=== PATIENT | male | born 2000 | race American Indian/Alaskan Native ===

== ENCOUNTER 2022-04-27 18:52 | Observation (INO) | payer MEDICAID ==
[2022-04-27] MEDS ORDERED: Acetaminophen 325 MG Tab PO PRN (19:56)
[2022-04-27] MEDS ORDERED: HYDROmorphone 0.5 MG/0.5 ML Syringe IVPUSH PRN (19:56)
[2022-04-27] MEDS ORDERED: Sodium Chloride 0.9% 10 ML Syringe FLUSH PRN (19:56)
[2022-04-27] MEDS ORDERED: Melatonin 3 MG Tab PO PRN (19:56)
[2022-04-27] MEDS ORDERED: Ondansetron 4 MG/2 ML SDV IV PRN (19:56)
[2022-04-27] MEDS ORDERED: Ondansetron 4 MG Tab.DIS PO PRN (19:56)
[2022-04-27] MEDS ORDERED: Piperacillin/Tazobactam 3.375 GM in Sodium Chloride 0.9% 50 ML IV SCH (20:00)
[2022-04-27 20:30] LABS: ESTIMATED GFR 108 mL/min (>60)
[2022-04-27] MEDS: Acetaminophen/HYDROcodone 325-5 MG Tab PO PRN (20:56)
[2022-04-27 21:23] LABS: CORONAVIRUS COVID-19 NAA NEGATIVE (NEGATIVE)
[2022-04-27] MEDS: Lactated Ringers 1,000 ML IV SCH (21:24)
[2022-04-27] MEDS ORDERED: Sodium Chloride 0.9% 50 ML ONE (21:39)
[2022-04-27] MEDS: Pantoprazole 40 MG Tab.CR PO SCH (21:52)
[2022-04-27] MEDS: Piperacillin/Tazobactam 3.375 GM in Sodium Chloride 0.9% 50 ML IV SCH (21:54)
[2022-04-28] MEDS: Acetaminophen/HYDROcodone 325-5 MG Tab PO PRN ×3 (03:32→20:39)
[2022-04-28] MEDS: Piperacillin/Tazobactam 3.375 GM in Sodium Chloride 0.9% 50 ML IV SCH ×2 (03:33→09:31)
[2022-04-28 04:54] LABS: ESTIMATED GFR 108 mL/min (>60)
[2022-04-28] MEDS: Lactated Ringers 1,000 ML IV SCH ×3 (06:06→22:11)
[2022-04-28] MEDS ORDERED: Enoxaparin 40 MG/0.4 ML Syringe SUBCUT ONE (09:00)
[2022-04-28] MEDS: Pantoprazole 40 MG Tab.CR PO SCH (09:31)
[2022-04-28] MEDS: Piperacillin/Tazobactam/Dext 3.375 GM in Premix Bag 1 BAG IV SCH ×2 (16:46→22:37)
[2022-04-29] MEDS: Acetaminophen/HYDROcodone 325-5 MG Tab PO PRN ×2 (01:26→06:01)
[2022-04-29] MEDS: Piperacillin/Tazobactam/Dext 3.375 GM in Premix Bag 1 BAG IV SCH ×3 (03:28→15:52)
[2022-04-29 06:51] LABS: ESTIMATED GFR 122 mL/min (>60)
[2022-04-29] MEDS: Lactated Ringers 1,000 ML IV SCH (07:02)
[2022-04-29] MEDS ORDERED: oxyCODONE 5 MG Tab PO PRN (07:12)
[2022-04-29] MEDS: Dextrose 5%-Lactated Ringers 1,000 ML IV SCH ×2 (07:20→15:52)
[2022-04-29] MEDS: Pantoprazole 40 MG Tab.CR PO SCH (07:20)
== END 2022-04-29 16:15 ==
LOC: INTOOBSV 18:53 → JP.MS 18:53
PROVIDERS: ADMIT Student in an Organized Health Care Education/Training Program; ATTEND Student in an Organized Health Care Education/Training Program
DX: K81.0 Acute cholecystitis (principal); K21.9 Gastro-esophageal reflux disease without esophagitis; Z20.822 Contact with and (suspected) exposure to COVID-19
CPT/HCPCS: 0241U; 36415; 74181; 74181-26; 76705; 80053; 82248; 83690; 83735; 84100; 85025; 85027; 96361; 96365; 96372; 96376; 99222; A9270-GY; G0378; G0379; J1650; J2543; J7120; J7121